=== PATIENT | female | born 1980 | race Two or more races ===

== ENCOUNTER 2017-10-24 13:59 | Emergency (ER) | payer MEDICAID ==
[~2017-10-24] VITALS: Ht 177.8 cm; Wt 113.4 kg
[2017-10-24 15:12] LABS: Basophils # (auto) 0 uL; Basophils % (auto) 0.6 % (0.0-2.0); Eosinophils # (auto) 0.3 uL; Eosinophils % (auto) 3.2 % (0.0-7.0); Hematocrit 42.2 % (36.0-46.0); Lymphocytes # (auto) 1.7 uL; Lymphocytes % (auto) 21.4 % (10.0-50.0); Mean Corpuscular Hemoglobin 27.8 pg (28.0-32.0); Mean Corpuscular Hgb Conc. 33.1 g/dL (32.0-36.0); Mean Corpuscular Volume 83.8 fL (80.0-100.0); Monocytes # (auto) 0.7 uL; Monocytes % (auto) 8.2 % (0.0-12.0); Neutrophils # (auto) 5.4 uL; Neutrophils % (auto) 66.6 % (37.0-80.0); Nucleated Red Blood Cells % 0.2 %; Platelet Count (auto) 275 10^3/uL (140-450); Red Blood Cells 5.03 10^6/uL (4.0-5.20); Red Cell Distribution Width 15.7 % (11.8-14.3)
[2017-10-24 15:30] LABS: Albumin 3.5 g/dL (3.4-5.0); Anion Gap 9 (5-15); Blood Urea Nitrogen 8 mg/dL (7-18); Calcium 8.8 mg/dL (8.5-10.1); Carbon Dioxide 26 mmol/L (21-32); Chloride 105 mmol/L (98-107); Glucose 86 mg/dL (74-106); Potassium 3.6 mmol/L (3.5-5.1); Sodium 140 mmol/L (136-145)
[2017-10-24 15:32] LABS: Alanine Aminotransferase 23 U/L (13-56); Aspartate Aminotransferase 20 U/L (15-37); BUN/Creatinine Ratio 9.4; GFR African American 96 mL/min; GFR Non-African American 79 mL/min
[2017-10-24 15:37] LABS: Alkaline Phosphatase 68 U/L (45-117); Bilirubin, Total 0.9 mg/dL (0.2-1.0)
[2017-10-24 15:42] LABS: INR 0.92 (0.9-1.15)
[2017-10-24 18:11] VITALS: BP 151/87
== END 2017-10-24 20:00 | disposition left against medical advice (07) ==
LOC: ER 13:59
DX: J42 Unspecified chronic bronchitis (principal); J98.01 Acute bronchospasm; G89.29 Other chronic pain; M54.9 Dorsalgia, unspecified
CPT/HCPCS: 36415; 71046; 80053; 84484; 84702; 85025; 85379; 85610; 85730; 93005